=== PATIENT | female | born 2000 | race Caucasian/White ===

== ENCOUNTER 2018-01-15 09:20 | Emergency (ER) | payer SELFPAY ==
[~2018-01-15] VITALS: Ht 152.4 cm; Wt 45.4 kg
[2018-01-15] MEDS ORDERED: NEXPLANON68 MG ID (09:55)
== END 2018-01-15 10:40 | disposition home or self-care (01) ==
LOC: ER 09:20
DX: J02.9 Acute pharyngitis, unspecified (principal); Z79.899 Other long term (current) drug therapy
CPT/HCPCS: 87081; 87430; 99283

== ENCOUNTER → 2018-06-10 | Outpatient (CLI) | payer OTHER ==
[~2018-06-10] MED LIST: NEXPLANON68 MG ID
== END ==
LOC: LAB EV 10:12 → LAB SHORT 10:12
DX: N39.0 Urinary tract infection, site not specified (principal)
CPT/HCPCS: 87077; 87086; 87186